=== PATIENT | male | born 1990 | race Caucasian/White ===

== ENCOUNTER 2025-04-08 09:08 | Emergency (ER) | payer OTHER ==
[~2025-04-08] VITALS: Ht 180.3 cm; Wt 72.6 kg
[2025-04-08] MEDS ORDERED: ACETAMINOPHEN500 M1 PO (12:26)
== END 2025-04-08 13:09 | disposition home or self-care (01) ==
LOC: ER 09:08
DX: G89.11 Acute pain due to trauma (principal); M79.645 Pain in left finger(s)